=== PATIENT | male | born 2000 | race Caucasian/White ===

== ENCOUNTER 2021-12-16 19:12 | Emergency (ER) | payer MEDICAID ==
[~2021-12-16] VITALS: Ht 182.9 cm; Wt 63.6 kg
[2021-12-16 19:31] VITALS: BP 96/56
== END 2021-12-16 21:42 | disposition home or self-care (01) ==
LOC: ER 19:13
DX: S61.412A Laceration without foreign body of left hand, initial encounter (principal); W26.8XXA Contact with other sharp object(s), not elsewhere classified, initial encounter; Y93.89 Activity, other specified; Y92.89 Other specified places as the place of occurrence of the external cause; Y99.8 Other external cause status
CPT/HCPCS: 99281